=== PATIENT | female | born 1950 | race Caucasian/White ===

== ENCOUNTER 2017-09-02 05:37 | Inpatient (IN) | payer MEDICARE, BC ==
[~2017-09-02] VITALS: Ht 177.8 cm; Wt 81.4 kg
[~2017-09-02 05:37] MED LIST: ASPIRIN EC81 MG PO; CARAFATE1 G PO; DILAUDID2 MG PO; GABAPENTIN100 MG PO; HYDROCODONE-APA1 TAB PO; IMITREX100 MG PO; INFED50 MG/ML IV; PHENERGAN25 M1 PO; PRILOSEC20 MG PO; RYBIX ODT50 MG PO; TYLENOL W/CODEI1 TAB PO; VITAMIN B-1000 MCG/M; VITAMIN B-1000 MCG/M IM; VITAMIN D31000 UNIT PO; XANAX0.25 MG PO
--- NOTE | 2017-09-02 07:45 | NUR ---
PATIENT TO ROOM AT THIS TIME WITH IV INTACT. NO COMPLAINTS OR SIGNS OF DISTRESS. LEFT HIP SWOLLEN WITH LARGE HEMATOMA NOTED. STATED IN SMALL AMOUNT OF PAIN. WILL SET UP TWISTER TENDER. CALL LIGHT WITHIN REACH.
[2017-09-02 08:36] VITALS: BP 137/78
[2017-09-02] MEDS ORDERED: MOBIC7.5 MG PO (09:07)
[2017-09-02] MEDS ORDERED: CYCLOBENZAPRINE10 MG PO (09:07)
[2017-09-02 11:44] LABS: BASOPHILS 0.4 % (0-2); EOSINOPHILS 2.1 % (0-7); HEMATOCRIT 30.2 % (36.0-48.0); HEMOGLOBIN 10.1 g/dL (12-16); IMMATURE GRANULOCYTES 0.4 % (0-5); LYMPHOCYTES 14.1 % (15-50); MCH 28.9 pg (26.0-34.0); MCHC 33.4 g/dL (31.0-37.0); MCV 86.5 fL (80.0-100.0); MEAN PLATELET VOLUME 9.2 fL (7.4-10.4); MONOCYTES 10.7 % (2-11); NEUTROPHILS 72.3 % (40-80); PLATELET COUNT 233 10x3/uL (130-400); RBC 3.49 10x6/uL (4.00-5.40); RDW 13.1 % (11.5-14.5); WBC 5.6 10x3/uL (4.8-10.8)
[2017-09-02 11:53] LABS: CALC OSMOLALITY 283 mosm/kg (275-300); CALCIUM 8.5 mg/dL (8.5-10.1); CARBON DIOXIDE 26.6 mmol/L (21.0-32.0); CHLORIDE - SERUM 107 mmol/L (98-107); CREATININE - SERUM 0.6 mg/dL (0.6-1.3); GLUCOSE 105 mg/dL (74-106); POTASSIUM - SERUM 3.6 mmol/L (3.5-5.1); SODIUM 143 mmol/L (136-145); UREA NITROGEN 10 mg/dL (7-18); eGFR NON AFRICAN AMERICAN > 90 mL/min (90-120)
[2017-09-02 11:57] LABS: INR 1.17 (0.85-1.17); PROTIME 14.8 SECONDS (11.6-15.0)
[2017-09-02 13:18] VITALS: Ht 177.8 cm; Wt 81.4 kg
[2017-09-02 15:55] VITALS: BP 108/64
--- NOTE | 2017-09-02 18:45 | NUR ---
PATIENT IN BED WITH IV INTACT. NO COMPLAINTS. IV INTACT. 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 CALL LIGHTW ITHIN REACH.
--- NOTE | 2017-09-02 19:56 | NUR ---
HELPED PLACE ON BEDPAN, NO DISTRESS NOTED, CALL LIGHT IN REACH, A&O, BED LOWEST POSITION, WILL CONTINUE TO MONITOR
[2017-09-02 20:00] VITALS: BP 126/57
[2017-09-03] VITALS: BP 115/69
--- NOTE | 2017-09-03 05:00 | NUR ---
PT IN BED WITH NO NEEDS. VISITOR IS AT THE BEDSIDE. SIDE RAILS ARE UP X 2. BED IS IN LOWEST POSITION. CALL LIGHT IS WITHIN REACH.
[2017-09-03 07:45] LABS: BASOPHILS 0.8 % (0-2); EOSINOPHILS 4.9 % (0-7); HEMATOCRIT 27.7 % (36.0-48.0); HEMOGLOBIN 9.2 g/dL (12-16); IMMATURE GRANULOCYTES 0.5 % (0-5); LYMPHOCYTES 27.5 % (15-50); MCH 29.2 pg (26.0-34.0); MCHC 33.2 g/dL (31.0-37.0); MCV 87.9 fL (80.0-100.0); MEAN PLATELET VOLUME 9.3 fL (7.4-10.4); MONOCYTES 11.1 % (2-11); NEUTROPHILS 55.2 % (40-80); PLATELET COUNT 223 10x3/uL (130-400); RBC 3.15 10x6/uL (4.00-5.40); RDW 13.3 % (11.5-14.5); WBC 3.9 10x3/uL (4.8-10.8)
[2017-09-03 07:47] LABS: APTT 30.1 SECONDS (22.8-39.4); INR 1.19 (0.85-1.17)
[2017-09-03 07:51] LABS: ALKALINE PHOSPHATASE 100 U/L (46-116); ALT (SGPT) 13 U/L (10-68); BILIRUBIN - TOTAL 0.31 mg/dL (0.2-1.3); CALC OSMOLALITY 284 mosm/kg (275-300); CALCIUM 8.2 mg/dL (8.5-10.1); CARBON DIOXIDE 26.3 mmol/L (21.0-32.0); CHLORIDE - SERUM 108 mmol/L (98-107); CREATININE - SERUM 0.6 mg/dL (0.6-1.3); GLUCOSE 95 mg/dL (74-106); POTASSIUM - SERUM 3.5 mmol/L (3.5-5.1); PROTEIN - SERUM 5.7 g/dL (6.4-8.2); SODIUM 144 mmol/L (136-145); eGFR NON AFRICAN AMERICAN > 90 mL/min (90-120)
[2017-09-03 07:54] LABS: UREA NITROGEN 7 mg/dL (7-18)
--- NOTE | 2017-09-03 08:20 | NUR ---
PT SEEN. STATES PAIN IS CONTROLABLE WITH BOOM MAN. LUNGS CLEAR-LEFT HIP NOTED WITH LARGE BRUISED AREA-PEDAL PULSE PRESENT AND STRONG. REPOSTIONED IN BED.CALL LIGHT IN REACH
[2017-09-03 09:32] VITALS: BP 124/81
[2017-09-03 13:03] VITALS: BP 118/69
[2017-09-03 15:34] VITALS: BP 120/70
--- NOTE | 2017-09-03 22:00 | NUR ---
PATIENT IS AWAKE, ALERT AND ORIENTED X'S 4. RESPIRATIONS ARE EVEN AND UNLABORED. NO SIGNS OF DISTRESS. IN ROOM, SITTING IN RECLINER. PATIENT IS CONVERSATIONAL, AND PLEASENT. SHE DENIES NEEDS. EDUCATED PATIENT ON TURNING EVERY 2 HOURS. SHE VERBALIZED UNDERSTANDING AND AGREED TO TURN. SHE TURNED INDEPENDENTLY TO HER RIGHT SIDE, I PUT A PILLOW UNDER HER LEFT SIDE TO SUPPORT HER LAYING ON HER RIGHT SIDE. BED IN LOWEST POSITION, CALL LIGHT IN REACH. BED RAILS UP X'S 2.
[2017-09-03 23:09] VITALS: BP 113/67
--- NOTE | 2017-09-04 00:40 | NUR ---
EDUCATED PATIENT ON SCDS. SHE VERBALIZED UNDERSTANDING AND AGREED TO WHERE THEM. APPLIED SCDS TO BILATERAL LEGS. ASSISTED PATIENT ON AND OFF OF THE BEDPAN. URINE SPILLED OUT ONTO THE PINK PAD. CHANGED THE PINK PAD. PATIENT LAYING ON HER BACK. SHE DENIES NEEDS AT THIS TIME.
[2017-09-04 01:20] VITALS: BP 120/64
[2017-09-04 05:48] VITALS: BP 135/83
--- NOTE | 2017-09-04 06:45 | NUR ---
REPORT RECEIVED, ASSUMED CARE OF PT. RESTING, AT BEDSIDE. R THUMB IV INFUSING FLUIDS ORDERED, DRSG C/D/I. DILAUDID KNIFE GLAZER ORDERED. NO NEEDS VOICED AT THIS TIME. BED IN LOWEST POSITION, SIDE RAILS UP X 2, CALL LIGHT WITHIN REACH.
--- NOTE | 2017-09-04 08:17 | NUR ---
Patient Name: CARRIE YOU Admission Status: Elective Accout number: [id number] Admission Date: 09-02-2017 : 1950 Admission Diagnosis:DISPLACED INTERTROCHANTERIC FRACTURE OF LEFT FEMUR, INI Attending: LUIS FERNANDO COX Current LOS: 2 Anticipated DC Date: 09-09-2017 Planned Disposition: Home Primary Insurance: MEDICARE A & B Discharge Planning Comments: CM MET WITH PATIENT AND SPOUSE (RM) REGARDING D/C NEEDS AND PLANS. PATIENT STATED HER SPOUSE WILL DRIVE HER HOME AT DISCHARGE. PATIENT STATED THERE ARE 2 STEPS TO ENTER HOME AND NO STAIRS INSIDE. PATIENT STATED SHE IS INDEPENDENT WITH HER CARE AND HAS A WHEELCHAIR, WALKER, AND BS COMMODE AT HOME. PATIENTS PCP IS DR. EUGENE IN [place] AND USES [facility] IN [place]. PATIENT DOES NOT WANT HOME HEALTH AT THIS TIME. CM WILL CONTINUE TO FOLLOW PATIENT WITH D/C NEEDS AND PLANS. PCP DR. VALORIE LOPES - [phone] RM (SPOUSE) [phone] Manager Child: Risa Vitale Is the patient Alert and Oriented? Yes 0 * How many steps to enter\exit or inside your home? 2 0 * PCP DR. EUGENE IN [place] 0 * [facility] [place] [facility] * Preadmission Environment Home with Family 0 * ADLs Independent 0 * Equipment Bedside Commode Walker Wheelchair 0 * List name and contact numbers for known caregivers / representatives who currently or will assist patient after discharge: RM (SPOUSE) [phone] 0 * Community resources currently utilized None 0 * Additional services required to return to the preadmission environment? Yes 0 * Can the patient safely return to the preadmission environment? Yes 0 * Has this patient been hospitalized within the prior 30 days at any hospital? No 0 Grand Total: 0
[2017-09-04 09:42] VITALS: BP 116/70
[2017-09-04 13:05] VITALS: BP 110/57
[2017-09-04 16:00] VITALS: BP 120/69
--- NOTE | 2017-09-04 20:19 | NUR ---
PATIENT IS AWAKE, ALERT AND ORIENTED X'S 4. RESPIRATIONS ARE EVEN AND UNLABORED. AT BEDSIDE. NO SIGNS OF DISTRESS NOTED AT THIS TIME.
[2017-09-04 21:20] VITALS: BP 121/59
[2017-09-05 00:56] VITALS: BP 120/70
[2017-09-05 04:52] VITALS: BP 126/71
--- NOTE | 2017-09-05 07:15 | NUR ---
REPORT RECEIVED, ASSUMED CARE OF PT. RESTING, EASILY AROUSED. AT BEDSIDE. R THUMB IV INFUSING ORDERED, DRSG C/D/I. NO NEEDS VOICED AT THIS TIME. BED IN LOWEST POSITION, SIDE RAILS UP X 2, CALL LIGHT WITHIN REACH.
[2017-09-05] MEDS ORDERED: DILAUDID4 MG PO (08:32)
[2017-09-05 08:36] VITALS: BP 122/64
--- NOTE | 2017-09-05 10:18 | NUR ---
CM REASSESSMENT NOTE: PATIENT IS DISCHARGING HOME TODAY/SPOUSE DRIVING. PATIENT REF. HOME HEALTH. PATIENT REQ. SHOWER CHAIR AND CM CALLED THE [employer] AND INSURANCE DOES NOT PAY FOR THAT. SPOUSE STATED HE WOULD GET ONE. PATIENT HAS A WALKER AT HOME. D/C IMM SIGNED. PATIENT HAD NO OTHER NEEDS FOR DISCHARGE.
[2017-09-05 11:27] LABS: HEMATOCRIT 27.3 % (36.0-48.0); HEMOGLOBIN 9.2 g/dL (12-16)
--- NOTE | 2017-09-05 11:45 | NUR ---
R FOREARM IV D/C'D BY STUDENT NURSE, BLEED CONTROL AND BANDAGE APPLIED. DISCHARGE INSTRUCTIONS GIVEN TO PT AND SPOUSE, VERBALIZED UNDERSTANDING AND SIGNED.
--- NOTE | 2017-09-05 12:02 | NUR ---
PT LEFT FLOOR WITH HOSPITAL STAFF AND VIA WHEELCHAIR TO PERSONAL VEHICLE. ALL PERSONAL BELONGINGS WITH PT. NO SIGNS OF ACUTE DISTRESS.
== END 2017-09-05 12:03 | disposition home or self-care (01) | DRG 605 ==
LOC: D.MS 05:37
PROVIDERS: ADMIT Orthopaedic Surgery
DX: S70.02XA Contusion of left hip, initial encounter (principal); D62 Acute posthemorrhagic anemia; W18.2XXA Fall in (into) shower or empty bathtub, initial encounter; M25.552 Pain in left hip

== ENCOUNTER → 2017-11-06 10:49 | Outpatient (CLI) | payer MEDICARE, BC ==
[2017-09-02 13:18] VITALS: BMI 25.7
[~2017-11-06 10:49] MED LIST changes: +CYCLOBENZAPRINE10 MG PO; +DILAUDID4 MG PO; +MOBIC7.5 MG PO
== END | disposition home or self-care (01) ==
LOC: D.US 11-03 10:00
DX: M25.552 Pain in left hip (principal); S70.02XA Contusion of left hip, initial encounter; X58.XXXA Exposure to other specified factors, initial encounter; Y93.89 Activity, other specified; Y92.89 Other specified places as the place of occurrence of the external cause

== ENCOUNTER → 2017-11-28 13:59 | Outpatient (CLI) | payer MEDICARE, BC ==
[2017-09-02 13:18] VITALS: BMI 25.7
== END | disposition home or self-care (01) ==
LOC: D.MRI 11-26 13:30
DX: M25.522 Pain in left elbow (principal)

== ENCOUNTER 2018-05-04 06:35 | Day surgery (SDC) | payer MEDICARE, BC ==
[2018-05-01 10:36] LABS: HEMATOCRIT 38.4 % (36.0-48.0); HEMOGLOBIN 13.1 g/dL (12-16); MCH 30.3 pg (26.0-34.0); MCHC 34.1 g/dL (31.0-37.0); MCV 88.7 fL (80.0-100.0); MEAN PLATELET VOLUME 9.4 fL (7.4-10.4); RBC 4.33 10x6/uL (4.00-5.40); RDW 12.4 % (11.5-14.5); WBC 6.7 10x3/uL (4.8-10.8)
[2018-05-01 10:45] LABS: APTT 26.8 SECONDS (22.8-39.4); INR 1.03 (0.85-1.17); PROTIME 13.1 SECONDS (11.6-15.0)
[2018-05-01 10:47] LABS: CALC OSMOLALITY 275 mosm/kg (275-300); CALCIUM 8.7 mg/dL (8.5-10.1); CARBON DIOXIDE 27.8 mmol/L (21.0-32.0); CHLORIDE - SERUM 105 mmol/L (98-107); CREATININE - SERUM 0.8 mg/dL (0.6-1.3); GLUCOSE 91 mg/dL (74-106); POTASSIUM - SERUM 3.2 mmol/L (3.5-5.1); SODIUM 138 mmol/L (136-145); UREA NITROGEN 12 mg/dL (7-18); eGFR NON AFRICAN AMERICAN 75 mL/min (90-120)
[~2018-05-04] VITALS: Ht 177.8 cm; Wt 80.7 kg
--- NOTE | ~2018-05-04 | OP ---
PATIENT NAME: CARRIE YOU MEDICAL RECORD: [id number] :46 LOCATION:D.OPS ADMISSION DATE: SURGEON: KENNY VILLALBA, LUIS FERNANDO LANDAVERDE DATE OF OPERATION: 05/04/2018 PREOPERATIVE DIAGNOSES: 1. Left distal biceps tendon tear. 2. Dupuytren contracture, left hand long finger. 3. Trigger fingers, left hand second, third, fourth, fifth digit. POSTOPERATIVE DIAGNOSES: 1. Left distal biceps tendon tear. 2. Dupuytren contracture, left hand long finger. 3. Trigger fingers, left hand second, third, fourth, fifth digit. PROCEDURES: 1. Distal biceps tendon repair. 2. Dupuytrens contracture excision, left hand long finger. 3. A1 val release, left hand index finger. 4. A1 val release, left hand long finger. 5. A1 val release, left hand ring finger. 6. A1 val release, left hand, small finger. 7. Carpal tunnel release. SURGEON: Luis Fernando Cox MD ANESTHESIA: General. INTRAOPERATIVE COMPLICATIONS: None. SUMMARY OF PATHOLOGIC FINDINGS: The patient was indeed found to have recurrent triggering, Dupuytren contracture of the palmar aspect of the long finger. Lastly, the patient had a complete rupture of the distal biceps tendon that had scarred into an area more proximal and was holding, but it was consistent with the patient's signs and symptoms and MRI. This was fixed with an arthroscopic bicortical button. OPERATIVE SUMMARY IN DETAIL: After obtaining the appropriate preoperative orthopedic surgery consent as well as anesthetic consultation, evaluation and clearance, the patient was brought to the operating room and placed on the operating table in supine position. After general laryngeal mask airway was administered, tourniquet was placed on the proximal aspect of the left upper extremity. Left upper extremity was then prepped and draped in routine sterile fashion. The arm was elevated and exsanguinated, tourniquet was inflated to 250 mmHg. Attention was first turned to the Dupuytren contracture. Volar zigzag incision was made in the palmar aspect of the Dupuytren contracture. Dissection was carefully carried across the Dupuytren contracture. It was excised in its entirety. The incision was taken far enough back to evaluate and visualize the median nerve. The median nerve was tight and she did have preoperative numbness in the fingers so the transverse carpal ligament was released in its entirety with direct visualization of the median nerve. Having completed this, the volar zigzag incision was large enough to release both the A1 val of the index and the A1 val of the long finger. A separate incision was made to approach both the A1 val of the ring and small finger. The A1 pulleys were visualized and incised. Nodularity was seen in the tendon, but no tearing was seen at either OPERATIVE REPORT [id number] side. After both A1 pulleys were released, the area was copiously irrigated. The entire palmar aspect was closed with 4-0 Prolene in routine interrupted fashion. Having completed the distal aspect of the case, curvilinear incision was made over the antecubital fossa. The biceps tendon was identified. Careful dissection down the biceps tendon revealed that it had pulled completely off the radial tuberosity. It was freed up and the bulb was torn in, was gently trimmed and then a size 7 reamer was used to create a unicortical hole after the bicortical hole had been made with the 3.5 drill. The Arthrex tendon button was affixed to the strings of the FiberLoop that had been placed in the biceps tendon, passed bicortically, locked in and then tied down with good tendon approximating into the 7-mm hole. The tails of these were then looped through the tendon back in a Krackow and then tied. Having completed this, a good repair of the tendon was complete. Wound was copiously irrigated and was closed with 2-0 Vicryl followed by 4-0 Prolene in a running fashion. Sterile dressings were applied. Tourniquet was deflated. Posterior splint was applied. After the splint was allowed to harden, the patient was awakened and taken to recovery room in stable condition. All final needle and sponge counts were correct. TRANSINT:[id number] Voice Confirmation ID: [id number] DOCUMENT ID: [id number] KENNY VILLALBA, LUIS FERNANDO LANDAVERDE at 1606 CC: [id number] DICTATION DATE: 05/04/18 1226 CRAB STEAMER: 05/04/18 1240 [facility] 05/04/18 [place] [address]
[~2018-05-04 06:35] MED LIST changes: +HYDROCHLOROTH12.5 M1 PO; +K-TAB10 MEQ PO
[2018-05-04] MEDS ORDERED: TYLENOL W/CODEI1 TAB PO (08:47)
[2018-05-04 09:03] VITALS: BP 131/70; Ht 177.8 cm; Wt 80.7 kg
[2018-05-04] MEDS ORDERED: DILAUDID4 MG PO (12:18)
== END 2018-05-04 14:45 | disposition home or self-care (01) ==
LOC: D.OPS 06:35 → D.PAN 09:00 → D.OPS 09:15
PROVIDERS: Anesthesiology
DX: M72.0 Palmar fascial fibromatosis [Dupuytren] (principal); S46.212A Strain of muscle, fascia and tendon of other parts of biceps, left arm, initial encounter; M65.322 Trigger finger, left index finger; M65.332 Trigger finger, left middle finger; M65.342 Trigger finger, left ring finger; M65.352 Trigger finger, left little finger

== ENCOUNTER → 2019-09-21 18:16 | Outpatient (CLI) | payer MEDICARE, BC ==
[2018-05-04 09:03] VITALS: BMI 25.5
== END | disposition home or self-care (01) ==
LOC: D.LABREF 18:16
PROVIDERS: ATTEND Orthopaedic Surgery
DX: M17.11 Unilateral primary osteoarthritis, right knee (principal)

== ENCOUNTER 2019-11-08 07:34 | Outpatient (CLI) | payer MEDICARE, BC ==
[2019-11-03 12:23] LABS: BASOPHILS 0.4 % (0-2); EOSINOPHILS 5.5 % (0-7); HEMATOCRIT 39.1 % (36.0-48.0); HEMOGLOBIN 12.7 g/dL (12-16); IMMATURE GRANULOCYTES 0.7 % (0-5); LYMPHOCYTES 19.7 % (15-50); MCH 29.9 pg (26.0-34.0); MCHC 32.5 g/dL (31.0-37.0); MEAN PLATELET VOLUME 9.5 fL (7.4-10.4); MONOCYTES 9.2 % (2-11); NEUTROPHILS 64.5 % (40-80); PLATELET COUNT 288 10x3/uL (130-400); RBC 4.25 10x6/uL (4.00-5.40)
[2019-11-03 12:38] LABS: ANION GAP 12.4 mmol/L (8-16); CALCIUM 8.6 mg/dL (8.5-10.1); CARBON DIOXIDE 26.7 mmol/L (21.0-32.0); CREATININE - SERUM 0.9 mg/dL (0.6-1.3); POTASSIUM - SERUM 4.1 mmol/L (3.5-5.1)
[2019-11-03 12:45] LABS: APTT 33.6 SECONDS (22.8-39.4); INR 1.1 (0.85-1.17); PROTIME 14.2 SECONDS (11.6-15.0)
[2019-11-03 12:53] LABS: APPEARANCE HAZY (CLEAR); BILIRUBIN NEGATIVE (NEGATIVE); COLOR DK YELLOW (YELLOW); GLUCOSE NEGATIVE (NEGATIVE); KETONE NEGATIVE (NEGATIVE); NITRITE POSITIVE (NEGATIVE); PROTEIN 1+ mg/dL (NEGATIVE); UROBILINOGEN NORMAL (NORMAL)
[2019-11-03 12:54] LABS: BACTERIA MODERATE /hpf (NEGATIVE); RED CELLS - URINE OCC /hpf (0-5); WHITE CELLS - URINE >50 /hpf (NEGATIVE)
[~2019-11-08] VITALS: Ht 175.3 cm; Wt 78.6 kg
[~2019-11-08 07:34] MED LIST changes: +FENOGLIDE40 MG PO
[2019-11-08] MEDS ORDERED: BACTRIM 400-801 TAB PO (08:33)
[2019-11-08 08:35] VITALS: BP 113/60; Ht 175.3 cm; Wt 78.6 kg
[2019-11-08 10:07] LABS: APPEARANCE HAZY (CLEAR); BACTERIA FEW /hpf (NEGATIVE); BILIRUBIN NEGATIVE (NEGATIVE); COLOR DK YELLOW (YELLOW); EPITHELIAL CELLS OCC /hpf (0-5); GLUCOSE NEGATIVE (NEGATIVE); KETONE NEGATIVE (NEGATIVE); MUCUS <1+ /lpf (NONE SEEN); NITRITE NEGATIVE (NEGATIVE); PROTEIN TRACE mg/dL (NEGATIVE)
[2019-11-08 10:08] LABS: RED CELLS - URINE OCC /hpf (0-5); WHITE CELLS - URINE RARE /hpf (NEGATIVE)
== END 2019-11-08 07:35 | disposition home or self-care (01) ==
LOC: D.OPS 07:34 → D.SDCHOLD 07:34 → D.OPS 07:35 → D.SDCHOLD 09:30 → EDSTATUS 10:00 → D.SDCHOLD 10:00
PROVIDERS: ATTEND Orthopaedic Surgery
DX: M17.11 Unilateral primary osteoarthritis, right knee (principal); T84.418A Breakdown (mechanical) of other internal orthopedic devices, implants and grafts, initial encounter; M25.561 Pain in right knee; Z53.9 Procedure and treatment not carried out, unspecified reason